=== PATIENT | female | born 1955 | race Hispanic/Latino ===

== ENCOUNTER 2017-02-15 13:51 | Emergency (ER) | payer MEDICARE, MEDICAID ==
[2017-02-15] MEDS ORDERED: Iohexol 240 (50 ml) PO ONE (14:16)
--- NOTE | 2017-02-15 14:21 | ED PDOC ---
HPI: Abdomen Time Seen by Provider: 02/15/17 13:55 Chief Complaint (Nursing): Abdominal Pain Chief Complaint (Provider): Abdominal pain History Per: Patient Additional Complaint(s): Pt c/o nausea, diarrhea and right sided abdominal pain, worse after eating x3 weeks. Pt also states "my stomach starts blowing up after i eat, like I'm ." No fever ror chills. no vomiting or diarrhea. Past Medical History Reviewed: Nursing Documentation, Vital Signs Vital Signs: Last Vital Signs Temp 97.3 F L 02/15/17 13:54 Pulse 67 02/15/17 13:54 Resp 18 02/15/17 13:54 BP Pulse Ox 98 02/15/17 14:21 - Medical History PMH: No Chronic Diseases - Surgical History Surgical History: Cholecystectomy - Family History Family History: States: Unknown Family Hx - Living Arrangements Living Arrangements: With Family - Social History Current smoker - smoking cessation education provided: No Alcohol: None Drugs: Denies - Home Medications Home Medications: Ambulatory Orders Medication Instructions Recorded Ciprofloxacin [Cipro] 500 mg PO BID #6 tab 02/15/17 Dicyclomine [Bentyl] 10 mg PO QID PRN #10 cap 02/15/17 - Allergies Allergies/Adverse Reactions: Allergies Allergy/AdvReac Type Severity Reaction Status Date / Time No Known Allergies Allergy Verified 02/15/17 13:54 Review of Systems ROS Statement: Except As Marked, All Systems Reviewed And Found Negative Gastrointestinal: Positive for: Abdominal Pain Physical Exam - Reviewed Nursing Documentation Reviewed: Yes Vital Signs Reviewed: Yes - Physical Exam Appears: Positive for: Well, Non-toxic, No Acute Distress Head Exam: Positive for: ATRAUMATIC, NORMAL INSPECTION, NORMOCEPHALIC Skin: Positive for: Normal Color, Warm, DRY Eye Exam: Positive for: EOMI, Normal appearance, PERRL ENT: Positive for: Normal ENT Inspection Neck: Positive for: Normal, Painless ROM Cardiovascular/Chest: Positive for: Regular Rate, Rhythm Respiratory: Positive for: CNT, Normal Breath Sounds Gastrointestinal/Abdominal: Positive for: Bowel Sounds, Soft, Tenderness (R flank pain) Back: Positive for: Normal Inspection. Negative for: L CVA Tenderness, R CVA Tenderness Extremity: Positive for: Normal ROM Neurologic/Psych: Positive for: Alert, Oriented - Laboratory Results Result Diagrams: 02/15/17 14:20 02/15/17 14:20 - ECG O2 Sat by Pulse Oximetry: 98 Medical Decision Making Medical Decision Making: IV access established and treatment initiated with IVF and Bentyl CBC resulted WNL COMP - BUN 20 UA with 26 WBCS and RBS (+) IV Cipro started for UTI CT;IMPRESSION: 1. Fatty liver and mild splenomegaly. 2. Status post cholecystectomy, mild diffuse dilatation of the common bile duct and prominence of central biliary radicles is in keeping with postcholecystectomy status. 3. Apparent mild mural thickening of the urinary bladder wall is likely related to underdistention none the excluded. Please correlate with urine analysis. 4. 6 mm nodule in the left lung base. A dedicated CT scan of the thorax without intravenous contrast on a nonemergent basis is recommended for complete evaluation of the lungs. Pt educated on results and demonstrated full understanding. Pt without any complaints of pain on re-eval. Abdomen soft, non tender and non distended Disposition - Clinical Impression Clinical Impression: UTI (urinary tract infection), Abdominal cramps - Patient ED Disposition Is Patient to be Admitted: No - Disposition Disposition: Routine/Home Disposition Time: 17:49 Condition: GOOD Prescriptions: Dicyclomine [Bentyl] 10 mg PO QID PRN #10 cap PRN Reason: Pain, Mild (1-3) Ciprofloxacin [Cipro] 500 mg PO BID #6 tab Instructions: Urinary Tract Infection in Women (ED), Gas and Bloating (ED), Abdominal Pain (ED)
[2017-02-15] MEDS ORDERED: Iohexol 240 (50 ml) ONE (14:22)
[2017-02-15 14:41] LABS: BASO % 0.4 % (0.0-2.0); EOS # 0.1 K/uL (0.0-0.7); HEMATOCRIT 38.4 % (34.0-47.0); LYMPH # 1.3 K/uL (1.0-4.3); LYMPH % 24.7 % (20.0-40.0); MEAN CELL VOLUME 91.8 fl (81.0-99.0); MEAN CORPUSCULAR HEMOGLOBIN 31.2 pg (27.0-31.0); MEAN PLATELET VOLUME 7.5 fl (7.2-11.7); MONO # 0.5 K/uL (0.0-0.8); MONO % 8.9 % (0.0-10.0); NEUT # 3.4 K/uL (1.8-7.0); NRBC % 0.1 % (0.0-0.0); RED CELL DISTRIBUTION WIDTH 13.5 % (11.5-14.5); WHITE BLOOD COUNT 5.3 K/uL (4.8-10.8)
[2017-02-15 14:47] LABS: ALB/GLOB RATIO 1.1 (1.0-2.1); ALKALINE PHOSPHATASE 63 U/L (38-126); ALT/SGPT 28 U/L (9-52); AMYLASE 95 U/L (30-110); AST/SGOT 42 U/L (14-36); BILIRUBIN,TOTAL 0.9 mg/dl (0.2-1.3); BLOOD UREA NITROGEN 20 mg/dl (7-17); CALCIUM 9.1 mg/dL (8.4-10.2); CARBON DIOXIDE 28 mmol/L (22-30); CHLORIDE 102 mmol/L (98-107); GFR AFRICAN-AMERICAN > 60; GLUCOSE,RANDOM 118 mg/dL (65-105); LIPASE 199 U/L (23-300); SODIUM 144 mmol/l (132-148); TOTAL PROTEIN 8.4 G/DL (6.3-8.2)
[2017-02-15 14:58] LABS: RBC URINE 4 /hpf (0-3); URINE BACTERIA RARE (<OCC); URINE BILIRUBIN NEGATIVE (NEGATIVE); URINE BLOOD NEGATIVE (NEGATIVE); URINE COLOR YELLOW (YELLOW); URINE GLUCOSE (UA) NEG (Normal); URINE KETONE NEGATIVE (NEGATIVE); URINE LEUKOCYTE ESTERASE MOD Leu/uL (Negative); URINE PROTEIN NEGATIVE (NEGATIVE); URINE UROBILINOGEN 0.2-1.0 mg/dL (0.2-1.0); WBC URINE 31 /hpf (0-5)
--- NOTE | 2017-02-15 15:12 | RAD ---
PROCEDURE: CHEST RADIOGRAPH, 1 VIEW HISTORY: med screening COMPARISON: None available. FINDINGS: LUNGS: The lungs are well inflated and clear. PLEURA: No pneumothorax or pleural fluid seen. CARDIOVASCULAR: Normal. OSSEOUS STRUCTURES: No significant abnormalities. VISUALIZED UPPER ABDOMEN: Normal. OTHER FINDINGS: None. IMPRESSION: No active pulmonary disease.
[2017-02-15] MEDS ORDERED: Sodium Chloride 0.9% 1,000 ML IV STA (15:17)
[2017-02-15] MEDS ORDERED: Ciprofloxacin 400mg/200ml D5W 200 ML IVPB STA (15:17)
[2017-02-15 15:29] LABS: RBC URINE 5 /hpf (0-3); URINE BACTERIA RARE (<OCC); URINE BILIRUBIN NEGATIVE (NEGATIVE); URINE BLOOD NEGATIVE (NEGATIVE); URINE COLOR YELLOW (YELLOW); URINE GLUCOSE (UA) NEG (Normal); URINE KETONE NEGATIVE (NEGATIVE); URINE LEUKOCYTE ESTERASE SMALL Leu/uL (Negative); URINE PROTEIN NEGATIVE (NEGATIVE); URINE UROBILINOGEN 0.2-1.0 mg/dL (0.2-1.0); WBC URINE 26 /hpf (0-5)
[2017-02-15] MEDS ORDERED: Iohexol 300 100 ML IJ ONE (16:27)
[2017-02-15] MEDS ORDERED: Sodium Chloride 0.9% 50 ML IV ONE (16:27)
--- NOTE | 2017-02-15 17:19 | CT ---
PROCEDURE: CT Abdomen and Pelvis with contrast HISTORY: 3 weeks of diarrhea, RUQ pain COMPARISON: None. TECHNIQUE: CT scan of the abdomen and pelvis was performed after intravenous administration of contrast. Oral contrast was not administered. Coronal and sagittal reformatted images were obtained. Contrast dose: 95 mL Omnipaque 300 Radiation dose: Total exam DLP = 1057.42 mGy-cm. This CT exam was performed using one or more of the following dose reduction techniques: Automated exposure control, adjustment of the mA and/or kV according to patient size, and/or use of iterative reconstruction technique. FINDINGS: LOWER THORAX: There is a 6 mm noncalcified nodule in the left lung base. There is bibasilar atelectasis. LIVER: The liver is normal in size and there is homogeneous enhancement. There is fatty infiltration in the liver. There is no focal lesion or intrahepatic biliary ductal dilatation. GALLBLADDER AND BILE DUCTS: Surgically absent. There is mild diffuse dilatation of the common bile duct which measures 11 mm, there is smooth tapering without evidence of choledocholithiasis most likely related to postcholecystectomy status. PANCREAS: There is mild fatty atrophy of the pancreas. There is homogeneous enhancement without focal masses. No calcifications or ductal dilatation. SPLEEN: There is borderline splenomegaly. There is homogeneous enhancement without focal lesion. ADRENALS: Both adrenal glands are normal in size without discrete nodule. KIDNEYS AND URETERS: Both kidneys are normal in size and there is homogeneous enhancement without hydronephrosis or focal mass. The ureters are not dilated. VASCULATURE: There are early atherosclerotic aortoiliac calcifications. No aortic aneurysm. BOWEL: The small bowel loops are normal in caliber. There is mild sigmoid diverticulosis without CT evidence for acute diverticulitis. APPENDIX: Normal appendix. PERITONEUM: No free fluid. No free air. LYMPH NODES: No enlarged lymph nodes. BLADDER: There is apparent mild mural thickening in the urinary bladder. REPRODUCTIVE: There is age-appropriate atrophy of the uterus. BONES: No acute fracture. Mild multilevel degenerative disc disease in the lower lumbar spine, worse at L5-S1. OTHER FINDINGS: None. IMPRESSION: 1. Fatty liver and mild splenomegaly. 2. Status post cholecystectomy, mild diffuse dilatation of the common bile duct and prominence of central biliary radicles is in keeping with postcholecystectomy status. 3. Apparent mild mural thickening of the urinary bladder wall is likely related to underdistention none the excluded. Please correlate with urine analysis. 4. 6 mm nodule in the left lung base. A dedicated CT scan of the thorax without intravenous contrast on a nonemergent basis is recommended for complete evaluation of the lungs.
[2017-02-15] MEDS ORDERED: Ciprofloxacin 400mg/200ml D5W 200 ML IVPB ONE (17:47)
[2017-02-15 19:17] VITALS: BP 132/74; PULSE 79; RESP 19; TEMP 98.6; O2SAT 97
--- NOTE | 2017-02-16 19:21 | CARD ---
APPROVED REPORT EKG Measurement Heart [id number] <Conclusion> Sinus bradycardia Inferior infarct, age undetermined Abnormal ECG
== END 2017-02-15 19:19 | disposition home or self-care (01) ==
LOC: H.ER 13:51
DX: N39.0 Urinary tract infection, site not specified (principal); R10.11 Right upper quadrant pain; R19.7 Diarrhea, unspecified; R11.0 Nausea; R16.1 Splenomegaly, not elsewhere classified; R91.1 Solitary pulmonary nodule; Z90.49 Acquired absence of other specified parts of digestive tract
CPT/HCPCS: 71010; 74177; 80053; 81003; 82150; 83690; 84484; 85025; 93005; 96374; 99284; J0744; J7040; Q9966; Q9967

== ENCOUNTER 2017-02-21 17:23 | Emergency (ER) | payer MEDICARE, MEDICAID ==
[2017-02-21 17:33] VITALS: BP 151/84; PULSE 61; RESP 16; TEMP 98; O2SAT 100
[2017-02-21] MEDS ORDERED: Sodium Chloride 0.9% 500 ML IV STA (18:20)
[2017-02-21] MEDS ORDERED: Atropine-Diphenoxylate 0.025-2.5 mg Tab PO STA (18:20)
--- NOTE | 2017-02-21 18:33 | ED PDOC ---
HPI: Abdomen Time Seen by Provider: 02/21/17 18:00 Chief Complaint (Nursing): GI Problem Chief Complaint (Provider): GI Problem History Per: Patient History/Exam Limitations: no limitations Onset/Duration Of Symptoms: Days (x2 days) Current Symptoms Are (Timing): Still Present Additional Complaint(s): 61 y/o female with a past medical history of hypertension and hypothyroidism who presents to the emergency department with a complaint of abdominal pain, 2 episodes of vomiting (non-bloody), and a total of 20 episodes of diarrhea between yesterday and today (mild bloody) x2 days. Denies fever, chills, and urinary discomfort. Last meal was at 12:30 pm. Able to tolerate liquids; but not food. Of note, patient visited the ER on 02/15/2017, was diagnosed with a Urinary Tract Infection and was prescribed antibiotics. Patient was also hospitalized in Dec 02 till Dec 3 was found with an enlarged liver. 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 Went through chemo therapy for 6 weeks and was cancer free in 2010. Recent completed endoscopy and colonoscopy a year ago with no abnormal findings. PMD: Dr. Isidro Delcid MD (Next appointment scheduled for March 22, 2017) Truck Jumper: Dr. Wai Corona MD (Next Appointment Scheduled for 02/22/2017 at 12:30; last visited him 3 weeks ago) Past Medical History Reviewed: Historical Data, Nursing Documentation, Vital Signs Vital Signs: Last Vital Signs Temp 98.0 F 02/21/17 17:31 Pulse 61 02/21/17 17:31 Resp 16 02/21/17 17:31 BP 151/84 H 02/21/17 17:31 Pulse Ox 100 02/21/17 21:13 - Medical History PMH: Hiatal Hernia, HTN, Hyperthyroidism, Kidney Stones - Surgical History Surgical History: Cholecystectomy, Hernia Repair Other surgeries: Tubual Ligation and kidney stones removal - Family History Family History: States: Diabetes (Brothers), Other (Mother had lung cancer) - Social History Current smoker - smoking cessation education provided: No Alcohol: None Drugs: Denies - Home Medications Home Medications: Ambulatory Orders Medication Instructions Recorded Ciprofloxacin [Cipro] 500 mg PO BID #6 tab 02/15/17 Dicyclomine [Bentyl] 10 mg PO QID PRN #10 cap 02/15/17 Dicyclomine [Bentyl] 20 mg PO BID PRN #30 tab 02/21/17 Ondansetron ODT [Zofran ODT] 1 odt PO Q6 PRN #30 odt 02/21/17 Saccharomyces Boulardi [Florastor] 500 mg PO BID #28 cap 02/21/17 - Allergies Allergies/Adverse Reactions: Allergies Allergy/AdvReac Type Severity Reaction Status Date / Time Dairy Allergy RASH Uncoded 02/21/17 17:31 Review of Systems ROS Statement: Except As Marked, All Systems Reviewed And Found Negative Constitutional: Negative for: Fever, Chills Gastrointestinal: Positive for: Vomiting (2 episodes), Abdominal Pain, Diarrhea (12 yesterday and 8 today), Hematochezia (Mild). Negative for: Hematemesis Genitourinary Female: Negative for: Dysuria, Frequency, Incontinence, Hematuria Physical Exam - Reviewed Nursing Documentation Reviewed: Yes Vital Signs Reviewed: Yes - Physical Exam Appears: Positive for: Non-toxic, No Acute Distress Head Exam: Positive for: ATRAUMATIC, NORMOCEPHALIC Skin: Positive for: Normal Color, Warm, Dry Eye Exam: Positive for: Normal appearance. Negative for: Conjunctival injection ENT: Positive for: Normal ENT Inspection, Other (Tachy mucus membranes). Negative for: Pharyngeal Erythema, Tonsillar Swelling Neck: Positive for: Normal, Supple Cardiovascular/Chest: Positive for: Regular Rate, Rhythm. Negative for: Murmur Respiratory: Positive for: Normal Breath Sounds. Negative for: Accessory Muscle Use, Respiratory Distress Gastrointestinal/Abdominal: Positive for: Soft, Tenderness (RUQ tenderness to palpation). Negative for: Normal Exam, Mass, Distended, Guarding, Rebound Neurologic/Psych: Positive for: Alert, Oriented - Laboratory Results Result Diagrams: 02/21/17 19:05 02/21/17 19:05 - ECG O2 Sat by Pulse Oximetry: 100 (RA) Pulse Ox Interpretation: Normal Medical Decision Making Medical Decision Making: Time: 18:00 Initial impression: Vomiting and diarrhea. Differential includes gastroenteritis , antibiotic associated diarrhea, dehydration and electrolyte abnormality. Initial plan: --COMP Metabolic Panel --Lact acid, Plasma Stat --Lipase Stat --Magnesium Stat --Phosphorous Stat --Ed Urine Dipstick (POC) --CBC w/ differential --Lomotil 0.025-2.5 mg 2 tab PO --Sodium Chloride 500 ml IV 500 mls/hr --Zofran 8 mgIV --Ova and Parasite --Stool Culture stat --Urine Culture Stat --IV Insertion --C Diff Toxin A B Stat --Urinalysis Stat --Revaluation Labs unremarkable Pt tolerating PO in ER. No further episodes of diarrhea in the ER. Pt has GI appointment tomorrow. Advised to keep appointment and continue medications as prescribed. Scribe Attestation: Documented by Sharona Guerrero, acting as a scribe for Marion Mcclain MD. Provider Scribe Attestation: All medical record entries made by the Scribe were at my direction and personally dictated by me. I have reviewed the chart and agree that the record accurately reflects my personal performance of the history, physical exam, medical decision making, and the department course for this patient. I have also personally directed, reviewed, and agree with the discharge instructions and disposition. Disposition - Clinical Impression Clinical Impression: Vomiting and diarrhea, Abdominal pain Counseled Patient/Family Regarding: Studies Performed, Diagnosis - Disposition Disposition: Routine/Home Disposition Time: 20:30 Condition: IMPROVED Additional Instructions: BLAND DIET WITH PLENTY OF HYDRATING FLUIDS KEEP YOUR APPOINTMENT WITH THE INSPECTOR MATERIALS AND PROCESSES TOMORROW. Prescriptions: Dicyclomine [Bentyl] 20 mg PO BID PRN #30 tab PRN Reason: abdominal pain Saccharomyces Boulardi [Florastor] 500 mg PO BID #28 cap Ondansetron ODT [Zofran ODT] 1 odt PO Q6 PRN #30 odt PRN Reason: Nausea/Vomiting Instructions: Abdominal Pain (ED), Gastroenteritis (ED)
[2017-02-21 19:10] LABS: BASO % 0.4 % (0.0-2.0); EOS # 0.1 K/uL (0.0-0.7); EOS % 2.2 % (0.0-4.0); HEMATOCRIT 35.8 % (34.0-47.0); LYMPH # 1.4 K/uL (1.0-4.3); LYMPH % 22.4 % (20.0-40.0); MEAN CELL VOLUME 91.7 fl (81.0-99.0); MEAN CORPUSCULAR HEMOGLOBIN 30.9 pg (27.0-31.0); MEAN CORPUSCULAR HGB CONC 33.7 g/dL (33.0-37.0); MEAN PLATELET VOLUME 7.3 fl (7.2-11.7); MONO # 0.4 K/uL (0.0-0.8); MONO % 7.2 % (0.0-10.0); NEUT # 4.1 K/uL (1.8-7.0); NEUT % 67.8 % (50.0-75.0); NRBC % 0.1 % (0.0-0.0); RED CELL DISTRIBUTION WIDTH 13.5 % (11.5-14.5); WHITE BLOOD COUNT 6.1 K/uL (4.8-10.8)
[2017-02-21 19:13] LABS: RBC URINE 1 /hpf (0-3); URINE BACTERIA RARE (<OCC); URINE BILIRUBIN NEGATIVE (NEGATIVE); URINE BLOOD NEGATIVE (NEGATIVE); URINE COLOR STRAW (YELLOW); URINE GLUCOSE (UA) NEG (Normal); URINE KETONE NEGATIVE (NEGATIVE); URINE LEUKOCYTE ESTERASE NEG Leu/uL (Negative); URINE PROTEIN NEGATIVE (NEGATIVE); URINE UROBILINOGEN 0.2-1.0 mg/dL (0.2-1.0); WBC URINE < 1 /hpf (0-5)
[2017-02-21 19:27] LABS: ALB/GLOB RATIO 1.1 (1.0-2.1); ALKALINE PHOSPHATASE 69 U/L (38-126); ALT/SGPT 31 U/L (9-52); AST/SGOT 32 U/L (14-36); BILIRUBIN,TOTAL 0.4 mg/dl (0.2-1.3); BLOOD UREA NITROGEN 20 mg/dl (7-17); CALCIUM 9.3 mg/dL (8.4-10.2); CARBON DIOXIDE 28 mmol/L (22-30); CHLORIDE 103 mmol/L (98-107); GFR AFRICAN-AMERICAN > 60; GLUCOSE,RANDOM 86 mg/dL (65-105); LIPASE 263 U/L (23-300); MAGNESIUM 2.1 MG/DL (1.6-2.3); PHOSPHOROUS 4.6 mg/dl (2.5-4.5); POTASSIUM 3.9 MMOL/L (3.6-5.0); SODIUM 143 mmol/l (132-148); TOTAL PROTEIN 7.8 G/DL (6.3-8.2)
== END 2017-02-21 20:51 | disposition home or self-care (01) ==
LOC: H.ER 17:23
DX: K52.9 Noninfective gastroenteritis and colitis, unspecified (principal); R11.10 Vomiting, unspecified; R10.9 Unspecified abdominal pain; I10 Essential (primary) hypertension; R19.7 Diarrhea, unspecified
CPT/HCPCS: 80053; 81003; 83605; 83690; 83735; 84100; 85025; 87086; 96374; 99283; J2405; J7040

== ENCOUNTER 2017-04-25 16:42 | Observation (INO) | payer MEDICARE, MEDICAID ==
[2017-04-25] MEDS ORDERED: Iohexol 240 (50 ml) PO STA (17:08)
[2017-04-25] MEDS ORDERED: Sodium Chloride 0.9% 1,000 ML IV STA (17:09)
--- NOTE | 2017-04-25 17:40 | ED PDOC ---
HPI: Abdomen Time Seen by Provider: 04/25/17 17:01 Chief Complaint (Nursing): GI Problem Chief Complaint (Provider): GI problem History Per: Patient History/Exam Limitations: no limitations Onset/Duration Of Symptoms: Days (5x) Severity: Moderate Location Of Pain/Discomfort: Other (right sided) Associated Symptoms: Diarrhea (bloody). denies: Fever, Nausea, Vomiting Additional Complaint(s): 61 year old female with a pertinent medical history of anal cancer (in remission ) presents to the ED with complaints of bloody diarrhea accompanied by right sided abdominal pain that started 5x days ago. She denies having nausea, vomiting, and fevers. PMD: Isidro Delcid MD Past Medical History Reviewed: Historical Data, Nursing Documentation, Vital Signs Vital Signs: Last Vital Signs Temp 98.3 F 04/25/17 21:22 Pulse 56 L 04/25/17 21:22 Resp 18 04/25/17 21:22 BP 138/70 04/25/17 21:22 Pulse Ox 99 04/25/17 21:52 - Medical History PMH: Hiatal Hernia, HTN, Hyperthyroidism, Kidney Stones Other PMH: anal cancer - Surgical History Surgical History: Cholecystectomy, Hernia Repair - Family History Family History: States: Unknown Family Hx, Diabetes (Brothers) - Social History Current smoker - smoking cessation education provided: No Alcohol: None Drugs: Denies - Home Medications Home Medications: Ambulatory Orders Medication Instructions Recorded Aspirin [Aspirin Chewable] 1 tab PO DAILY 04/25/17 Famotidine [Pepcid] 1 tab PO DAILY 04/25/17 Levothyroxine [Synthroid] 1 tab PO DAILY 04/25/17 Simvastatin [Simvastatin] 1 tab PO HS 04/25/17 amLODIPine [Norvasc] 1 tab PO DAILY 04/25/17 hydroCHLOROthiazide [Hydrodiuril] 1 tab PO DAILY 04/25/17 - Allergies Allergies/Adverse Reactions: Allergies Allergy/AdvReac Type Severity Reaction Status Date / Time Dairy Allergy RASH Uncoded 04/25/17 16:50 Review of Systems ROS Statement: Except As Marked, All Systems Reviewed And Found Negative Constitutional: Negative for: Fever Gastrointestinal: Positive for: Abdominal Pain (right sided), Diarrhea (boody). Negative for: Nausea, Vomiting Physical Exam - Reviewed Nursing Documentation Reviewed: Yes Vital Signs Reviewed: Yes - Physical Exam Appears: Positive for: Well, Non-toxic, No Acute Distress Head Exam: Positive for: ATRAUMATIC, NORMOCEPHALIC Skin: Positive for: Normal Color, Warm, Dry Cardiovascular/Chest: Positive for: Regular Rate, Rhythm Respiratory: Positive for: Normal Breath Sounds. Negative for: Respiratory Distress Gastrointestinal/Abdominal: Positive for: Tenderness (right upper quadrant tenderness ). Negative for: Mass, Guarding, Rebound Rectal: Positive for: Other (chaperoned by Lorene LOPEZ. No gross blood) Neurologic/Psych: Positive for: Alert, Oriented (3x) - Laboratory Results Result Diagrams: 04/25/17 17:36 04/25/17 17:36 - ECG O2 Sat by Pulse Oximetry: 99 (RA) Pulse Ox Interpretation: Normal Medical Decision Making Medical Decision Makin:01 Initial impression: 61 year old female with bloody diarrhea and right sided abdominal pain. Initial plan: * CT abdomen and pelvis with PO and IV contrast * EKG * CMP * lipase * udip * CBC * PT/PTT * IV NS 1,000ml IV 125mls/hr * omnipaque 240 50ml PO * occult blood, stool * urinalysis * reevaluation 17:08 Patient is being placed in ED observation pending CT scan, labs, and additional diagnostics to rule out acute or life threatening disease. See ED observation note for further updates. Copy of CT report given to patient. Scribe Attestation: Documented by Zahida Jeter, acting as a scribe for Mickie Torres MD. Provider Scribe Attestation: All medical record entries made by the Scribe were at my direction and personally dictated by me. I have reviewed the chart and agree that the record accurately reflects my personal performance of the history, physical exam, medical decision making, and the department course for this patient. I have also personally directed, reviewed, and agree with the discharge instructions and disposition. ED OBSERVATION Date of observation admission: 04/25/17 Time of observation admission: 17:08 - Observation admission statement Patient is being placed in observation because:: Need for additional diagnostics to rule out acute life threatening condition. - Goals of Observation Goals of observation are:: Resolution of symptoms. - Progress Note Progress Note: 04/25/17 20:59 CT abdomen and pelvis with PO and IV contrast is read and reviewed by radiologist. FINDINGS: 5 mm nodule at the left lung base, image 7. 2.5 pleural-based nodular focus in the right lung base/right middle lobe, image 4. The liver, spleen and adrenal glands demonstrate no acute abnormalities. Status post cholecystectomy. Dilated common bile duct likely related to post cholecystectomy status. Mild atrophy of the pancreas. The kidneys are symmetric with no evidence of hydronephrosis. Atherosclerosis. The stomach is collapsed, but gastric wall appears prominent. Further evaluation can be performed with upper endoscopy as warranted. The small and large bowel as visualized demonstrate no evidence of obstruction or clear focus of inflammation. Retained fecal material in the colon. Diverticulosis. No ascites. No free air. Bladder is collapsed, but bladder wall appears thickened. Degenerative changes, most notable at L5-S1. IMPRESSION: 5 mm nodule at the left lung base, image 7. 2.5 pleural-based nodular focus in the right lung base/right middle lobe, image 4. Correlate with report and recommendations from recent dedicated chest CT. Stomach is collapsed, but gastric wall appears prominent. Further evaluation can be performed with upper endoscopy as warranted. Bladder is collapsed, but bladder wall appears thickened. Please see additional details/findings as above. Some of the above findings may warrant followup evaluation. Correlate clinically. Followup as warranted. 04/25/17 22:10 Patient is being discharged. Disposition - Clinical Impression Clinical Impression: Diverticulosis - Disposition Condition: STABLE
[2017-04-25 17:41] LABS: BASO % 0.5 % (0.0-2.0); EOS # 0.1 K/uL (0.0-0.7); EOS % 2.5 % (0.0-4.0); HEMATOCRIT 36.7 % (34.0-47.0); LYMPH # 1.2 K/uL (1.0-4.3); MEAN CELL VOLUME 93.1 fl (81.0-99.0); MEAN CORPUSCULAR HEMOGLOBIN 31.4 pg (27.0-31.0); MEAN CORPUSCULAR HGB CONC 33.7 g/dL (33.0-37.0); MEAN PLATELET VOLUME 7.2 fl (7.2-11.7); MONO # 0.6 K/uL (0.0-0.8); MONO % 9.8 % (0.0-10.0); NEUT # 3.9 K/uL (1.8-7.0); NEUT % 67.2 % (50.0-75.0); NRBC % 0.1 % (0.0-0.0); RED CELL DISTRIBUTION WIDTH 13.5 % (11.5-14.5); WHITE BLOOD COUNT 5.9 K/uL (4.8-10.8)
[2017-04-25 18:11] LABS: ALB/GLOB RATIO 1.3 (1.0-2.1); ALKALINE PHOSPHATASE 61 U/L (38-126); ALT/SGPT 43 U/L (9-52); AST/SGOT 27 U/L (14-36); BILIRUBIN,TOTAL 0.3 mg/dl (0.2-1.3); BLOOD UREA NITROGEN 16 mg/dl (7-17); CALCIUM 9.1 mg/dL (8.4-10.2); CARBON DIOXIDE 28 mmol/L (22-30); CHLORIDE 101 mmol/L (98-107); GFR AFRICAN-AMERICAN > 60; GLUCOSE,RANDOM 122 mg/dL (65-105); LIPASE 246 U/L (23-300); POTASSIUM 3.6 MMOL/L (3.6-5.0); SODIUM 142 mmol/l (132-148)
[2017-04-25 18:14] LABS: RBC URINE 4 /hpf (0-3); URINE BILIRUBIN NEGATIVE (NEGATIVE); URINE BLOOD NEGATIVE (NEGATIVE); URINE COLOR YELLOW (YELLOW); URINE GLUCOSE (UA) NEG (Normal); URINE KETONE NEGATIVE (NEGATIVE); URINE LEUKOCYTE ESTERASE SMALL Leu/uL (Negative); URINE PROTEIN NEGATIVE (NEGATIVE); URINE UROBILINOGEN 0.2-1.0 mg/dL (0.2-1.0); WBC URINE 4 /hpf (0-5)
[2017-04-25 18:20] LABS: PARTIAL THROMBOPLASTIN TIME 28.5 Seconds (25.6-37.1)
--- NOTE | 2017-04-25 21:00 | CT ---
EXAM: CT Abdomen and Pelvis With Intravenous Contrast CLINICAL HISTORY: 61 years old, female; Pain; Abdominal pain; Epigastric; Additional info: Ruq pain, bloody diarrhea, h/o cholecystectomy TECHNIQUE: Axial computed tomography images of the abdomen and pelvis with intravenous contrast. This CT exam was performed using one or more of the following dose reduction techniques: automated exposure control, adjustment of the mA and/or kV according to patient size, and/or use of iterative reconstruction technique. Coronal and sagittal reformatted images were created and reviewed. CONTRAST: 95 mL of omnipaque administered intravenously. COMPARISON: CT - ABD PELVIS PO IV CONTRAST 02/15/2017 4:28:17 PM FINDINGS: 5 mm nodule at the left lung base, image 7. 2.5 pleural-based nodular focus in the right lung base/right middle lobe, image 4. The liver, spleen and adrenal glands demonstrate no acute abnormalities. Status post cholecystectomy. Dilated common bile duct likely related to post cholecystectomy status. Mild atrophy of the pancreas. The kidneys are symmetric with no evidence of hydronephrosis. Atherosclerosis. The stomach is collapsed, but gastric wall appears prominent. Further evaluation can be performed with upper endoscopy as warranted. The small and large bowel as visualized demonstrate no evidence of obstruction or clear focus of inflammation. Retained fecal material in the colon. Diverticulosis. No ascites. No free air. Bladder is collapsed, but bladder wall appears thickened. Degenerative changes, most notable at L5-S1. IMPRESSION: 5 mm nodule at the left lung base, image 7. 2.5 pleural-based nodular focus in the right lung base/right middle lobe, image 4. Correlate with report and recommendations from recent dedicated chest CT. Stomach is collapsed, but gastric wall appears prominent. Further evaluation can be performed with upper endoscopy as warranted. Bladder is collapsed, but bladder wall appears thickened. Please see additional details/findings as above. Some of the above findings may warrant followup evaluation. Correlate clinically. Followup as warranted.
[2017-04-25 21:24] VITALS: BP 138/70; PULSE 56; RESP 18; TEMP 98.3
[2017-04-25 21:53] VITALS: O2SAT 99
--- NOTE | 2017-04-26 18:14 | CARD ---
APPROVED REPORT EKG Measurement Heart [id number] <Conclusion> Sinus bradycardia Inferior infarct, age undetermined Abnormal ECG
== END 2017-04-25 21:52 | disposition home or self-care (01) ==
LOC: H.ER 16:42 → H.EROBSV 17:08
PROVIDERS: ADMIT Emergency Medicine; ATTEND Emergency Medicine
DX: K57.90 Diverticulosis of intestine, part unspecified, without perforation or abscess without bleeding (principal); I10 Essential (primary) hypertension; Z85.048 Personal history of other malignant neoplasm of rectum, rectosigmoid junction, and anus; Z91.011 Allergy to milk products

== ENCOUNTER 2017-11-28 18:38 | Observation (INO) | payer MEDICARE, MEDICAID ==
--- NOTE | 2017-11-28 19:49 | ED PDOC ---
HPI: Chest Pain Time Seen by Provider: 11/28/17 18:55 Chief Complaint (Nursing): Chest Pain Chief Complaint (Provider): Chest Pain History Per: Patient History/Exam Limitations: no limitations Onset/Duration Of Symptoms: Days (x3) Current Symptoms Are (Timing): Still Present Additional Complaint(s): 62 year old female with a past medical history of NM (2011), HTN, hypercholesterolemia, hypothyroidism, and arthritis, who presents to the ED complaining of chest pain x3 days. Patient states chest pain is present at rest and has been increasing since onset. Also states it worsens with any exertion. Also reports mild shortness of breath and pain to her left posterior buttock and thigh area. States she went to [facility] at that time for evaluation where she was diagnosed with gastritis and prescribed Maalox and Pepcid. Reports that since then her chest pain is now radiating to her neck, to her shoulder, and down her right arm. States there is no improvement. Denies leg swelling, cough, and fever. PMD: Dr. Delcid, [facility] Past Medical History Reviewed: Historical Data, Nursing Documentation, Vital Signs Vital Signs: Last Vital Signs Temp 98.4 F 11/28/17 18:48 Pulse 64 11/28/17 18:48 Resp 18 11/28/17 18:48 BP 158/74 H 11/28/17 18:48 Pulse Ox 98 11/28/17 18:48 - Medical History PMH: Arthritis, Hiatal Hernia, HTN, Hypercholesterolemia, Hypothyroidism, Kidney Stones - Surgical History Surgical History: Cholecystectomy, Hernia Repair - Family History Family History: States: Unknown Family Hx, Diabetes (Brothers) Other Family History: Lung cancer (mother) - Social History Current smoker - smoking cessation education provided: No Alcohol: None - Home Medications Home Medications: Ambulatory Orders Medication Instructions Recorded Aspirin [Aspirin Chewable] 1 tab PO DAILY 04/25/17 Famotidine [Pepcid] 1 tab PO DAILY 04/25/17 Levothyroxine [Synthroid] 1 tab PO DAILY 04/25/17 Simvastatin [Simvastatin] 1 tab PO HS 04/25/17 amLODIPine [Norvasc] 1 tab PO DAILY 04/25/17 hydroCHLOROthiazide [Hydrodiuril] 1 tab PO DAILY 04/25/17 Mometasone 0.1% [Elocon 0.1%] 15 gm TP BID 11/28/17 - Allergies Allergies/Adverse Reactions: Allergies Allergy/AdvReac Type Severity Reaction Status Date / Time Dairy Allergy RASH Uncoded 11/28/17 18:46 Review of Systems ROS Statement: Except As Marked, All Systems Reviewed And Found Negative (as per HPI) - ECG O2 Sat by Pulse Oximetry: 98 (RA) Pulse Ox Interpretation: Normal Medical Decision Making Medical Decision Making: Time: 19:23 Initial Impression: Chest pain and sciatica. Differential diagnoses include, but are not limited to acute coronary syndrome, angina, PE, cervical radiculopathy Initial Plan: --Blood type and screen --EKG --CMP --Magnesium --Phosphorus --Troponin I --Urine dipstick --CBC w/ differential --D Dimer --PTT --PT --Chest X-Ray 2 views --IV Insertion --X-Ray Cervical spine --X-Ray Hip 2 views w/ pelvis --X-Ray LS spine --Reevaluation Scribe Attestation: Documented by Leland Crowell, acting as a scribe for Marion Mcclain MD. Provider Scribe Attestation: All medical record entries made by the Scribe were at my direction and personally dictated by me. I have reviewed the chart and agree that the record accurately reflects my personal performance of the history, physical exam, medical decision making, and the department course for this patient. I have also personally directed, reviewed, and agree with the discharge instructions and disposition. Disposition - Disposition
[2017-11-28 20:18] LABS: BASO % 0.7 % (0.0-2.0); EOS # 0.1 K/uL (0.0-0.7); EOS % 1.7 % (0.0-4.0); HEMOGLOBIN 11.9 g/dL (12.0-16.0); LYMPH # 1.3 K/uL (1.0-4.3); LYMPH % 26.2 % (20.0-40.0); MEAN CELL VOLUME 91.2 fl (81.0-99.0); MEAN CORPUSCULAR HEMOGLOBIN 31.1 pg (27.0-31.0); MEAN CORPUSCULAR HGB CONC 34.1 g/dL (33.0-37.0); MEAN PLATELET VOLUME 7.5 fl (7.2-11.7); MONO # 0.7 K/uL (0.0-0.8); MONO % 13.6 % (0.0-10.0); NEUT # 2.8 K/uL (1.8-7.0); NEUT % 57.8 % (50.0-75.0); NRBC % 0.1 % (0.0-0.0); RBC 3.83 Mil/uL (3.80-5.20); WHITE BLOOD COUNT 4.9 K/uL (4.8-10.8)
[2017-11-28 20:28] LABS: ALB/GLOB RATIO 1.2 (1.0-2.1); ALBUMIN 4.3 g/dL (3.5-5.0); ALT/SGPT 121 U/L (9-52); AST/SGOT 115 U/L (14-36); BLOOD UREA NITROGEN 14 mg/dl (7-17); CALCIUM 9.2 mg/dL (8.4-10.2); GFR AFRICAN-AMERICAN > 60; GFR NON-AFRICAN AMERICAN > 60; MAGNESIUM 2.2 MG/DL (1.6-2.3)
[2017-11-28 20:37] LABS: PARTIAL THROMBOPLASTIN TIME 26.8 Seconds (25.6-37.1); PROTHROMBIN TIME 11.4 Seconds (9.8-13.1)
[2017-11-28] MEDS ORDERED: Sodium Chloride 0.9% 50 ML IV ONE (23:27)
[2017-11-28] MEDS ORDERED: Iodixanol 320 MG/ML 100 ML BOTTLE IV ONE (23:27)
--- NOTE | 2017-11-29 00:18 | ED PDOC ---
- Laboratory Results Result Diagrams: 11/28/17 20:09 11/28/17 20:09 - ECG O2 Sat by Pulse Oximetry: 98 (RA) Pulse Ox Interpretation: Normal Medical Decision Making Medical Decision Making: Time: 00:00 --Patient signed out to me pending CT. Chest CT FINDINGS: Artifacts: Motion artifact degrades image quality. Heart, aorta and Pulmonary arteries: The heart is mildly enlarged.There is fluid in pericardial recesses. There is prominence of the ascending aorta approximately 3.9 cm maximal diameter. There is perfusion of the arch vessels. Main pulmonary artery is normal in caliber. There are no central pulmonary emboli. Bolus timing and motion limit evaluation of peripheral vessels. Lungs and pleural spaces: Trachea and main bronchi are patent.There is no pneumothorax. There is minimal atelectasis/scarring at the lung bases. There is minimal dependent atelectasis bilaterally. There is no focal consolidation. There is a 2.5 mm superior segment left lower lobe pleural-based nodule, unchanged. There is a 2.8 mm left lower lobe pulmonary nodule, unchanged , image 81 series 4. Pleural-based right middle lobe nodule seen on the prior study now measures approximately 2.8 mm, image 70 series 4 There is no focal consolidation. There are no effusions. Mediastinum: The esophagus is unremarkable. There is a small hiatal hernia. There are no pathologically enlarged mediastinal or hilar nodes. Thyroid: Thyroid is not optimally demonstrated. Bones/joints: There are degenerative changes in the osseus structures. Soft tissues: unremarkable Upper abdomen: There are no acute abnormalities in the visualized portion of the abdomen. Gallbladder is absent IMPRESSION: Cardiomegaly with mild aneurysmal dilatation of the ascending aorta , similar finding seen on prior study; limited evaluation of pulmonary arteries due to patient motion and bolus timing no central pulmonary emboli; stable small bilateral pulmonary nodules; no focal pneumonia Patient will be hospitalized as a patient in observation to the service of Dr. Fan. Scribe Attestation: Documented by Ade Tesfaye, acting as a scribe for Dewey Diallo MD. Provider Scribe Attestation: All medical record entries made by the Scribe were at my direction and personally dictated by me. I have reviewed the chart and agree that the record accurately reflects my personal performance of the history, physical exam, medical decision making, and the department course for this patient. I have also personally directed, reviewed, and agree with the discharge instructions and disposition. Disposition - Clinical Impression Clinical Impression: Chest pain - POA Present On Arrival: None - Disposition Disposition: Hospitalized as Observation Patient Disposition Time: 00:11 Condition: STABLE Patient Signed Over To: Grayson Fan
--- NOTE | 2017-11-29 00:58 | CT ---
EXAM: CT Angiography Chest With Intravenous Contrast EXAM DATE/TIME: 11/28/2017 9:14 PM CLINICAL HISTORY: 62 years old, female; Pain; Chest pain; Additional info: Chest pain elevated ddimer TECHNIQUE: Axial computed tomographic angiography images of the chest with intravenous contrast using pulmonary embolism protocol. All CT scans at this facility use one or more dose reduction techniques, viz.: automated exposure control; ma/kV adjustment per patient size (including targeted exams where dose is matched to indication; i.e. head); or iterative reconstruction technique. MIP reconstructed images were created and reviewed. Coronal and sagittal reformatted images were created and reviewed. CONTRAST: 86 mL of [id number] administered intravenously. COMPARISON: CT - CHEST W/WO CONTRAST 2017-03-14 12:01 FINDINGS: Artifacts: Motion artifact degrades image quality. Heart, aorta and Pulmonary arteries: The heart is mildly enlarged.There is fluid in pericardial recesses. There is prominence of the ascending aorta approximately 3.9 cm maximal diameter. There is perfusion of the arch vessels. Main pulmonary artery is normal in caliber. There are no central pulmonary emboli. Bolus timing and motion limit evaluation of peripheral vessels. Lungs and pleural spaces: Trachea and main bronchi are patent.There is no pneumothorax. There is minimal atelectasis/scarring at the lung bases. There is minimal dependent atelectasis bilaterally. There is no focal consolidation. There is a 2.5 mm superior segment left lower lobe pleural-based nodule, unchanged. There is a 2.8 mm left lower lobe pulmonary nodule, unchanged, image 81 series 4. Pleural-based right middle lobe nodule seen on the prior study now measures approximately 2.8 mm, image 70 series 4 There is no focal consolidation. There are no effusions. Mediastinum: The esophagus is unremarkable. There is a small hiatal hernia. There are no pathologically enlarged mediastinal or hilar nodes. Thyroid: Thyroid is not optimally demonstrated. Bones/joints: There are degenerative changes in the osseus structures. Soft tissues: unremarkable Upper abdomen: There are no acute abnormalities in the visualized portion of the abdomen. Gallbladder is absent IMPRESSION: Cardiomegaly with mild aneurysmal dilatation of the ascending aorta, similar finding seen on prior study; limited evaluation of pulmonary arteries due to patient motion and bolus timing no central pulmonary emboli; stable small bilateral pulmonary nodules; no focal pneumonia
[2017-11-29 05:45] VITALS: RESP 18
[2017-11-29] MEDS ORDERED: Levothyroxine 100 MCG TAB PO SCH (06:45)
[2017-11-29 07:18] LABS: BASO % 0.3 % (0.0-2.0); EOS # 0.1 K/uL (0.0-0.7); EOS % 2.6 % (0.0-4.0); HEMOGLOBIN 11.7 g/dL (12.0-16.0); LYMPH # 1.2 K/uL (1.0-4.3); LYMPH % 25.8 % (20.0-40.0); MEAN CELL VOLUME 92.8 fl (81.0-99.0); MEAN CORPUSCULAR HEMOGLOBIN 30.7 pg (27.0-31.0); MEAN CORPUSCULAR HGB CONC 33.1 g/dL (33.0-37.0); MEAN PLATELET VOLUME 7.6 fl (7.2-11.7); MONO # 0.6 K/uL (0.0-0.8); MONO % 13.1 % (0.0-10.0); NEUT # 2.7 K/uL (1.8-7.0); NEUT % 58.2 % (50.0-75.0); NRBC % 0.1 % (0.0-0.0); RBC 3.82 Mil/uL (3.80-5.20); RED CELL DISTRIBUTION WIDTH 12.9 % (11.5-14.5); WHITE BLOOD COUNT 4.7 K/uL (4.8-10.8)
[2017-11-29 07:28] LABS: ALB/GLOB RATIO 1.2 (1.0-2.1); ALBUMIN 3.9 g/dL (3.5-5.0); ALT/SGPT 97 U/L (9-52); AST/SGOT 75 U/L (14-36); BLOOD UREA NITROGEN 12 mg/dl (7-17); GFR AFRICAN-AMERICAN > 60; GFR NON-AFRICAN AMERICAN > 60; HDL CHOLESTEROL 35 MG/DL (30-70)
[2017-11-29] MEDS ORDERED: Pneumococcal 23-Valent Vaccine IM ONE (09:00)
[2017-11-29] MEDS ORDERED: FAMOTIDINE PO SCH (09:00)
[2017-11-29] MEDS ORDERED: Enoxaparin 40 mg Syringe SC SCH (09:00)
[2017-11-29] MEDS ORDERED: MOMETASONE 0.1% TP SCH (09:00)
[2017-11-29 09:10] LABS: LDL CHOLESTEROL 107 mg/dL (0-129)
--- NOTE | 2017-11-29 09:35 | RAD ---
PROCEDURE: Cervical Spine Radiographs. HISTORY: Pain. COMPARISON: None. FINDINGS: BONES: Alignment maintained. No fracture. Dens Intact. DISC SPACES: Multilevel narrowing. SOFT TISSUES: Normal. No prevertebral soft tissue swelling. OTHER FINDINGS: None. IMPRESSION: No acute fracture. Degenerative changes.
--- NOTE | 2017-11-29 09:43 | RAD ---
HISTORY: chest pain COMPARISON: Radiographs dated 02/15/2017. TECHNIQUE: Chest PA and lateral FINDINGS: LUNGS: No active pulmonary disease. PLEURA: No significant pleural effusion identified. No pneumothorax apparent. CARDIOVASCULAR: Cardiomediastinal silhouette within normal limits. OSSEOUS STRUCTURES: Unchanged. VISUALIZED UPPER ABDOMEN: Normal. OTHER FINDINGS: None. IMPRESSION: No active disease.
--- NOTE | 2017-11-29 10:00 | RAD ---
PROCEDURE: Left Hip X-ray Radiographs. HISTORY: pain COMPARISON: Correlation is made to CT scan of the abdomen and pelvis dated 04/25/2017. FINDINGS: BONES: No acute fracture. JOINTS: Narrowing of both hips with subchondral sclerosis and cystic change. SOFT TISSUES: Normal. OTHER FINDINGS: None. IMPRESSION: No demonstrated fracture or dislocation. Bilateral hip degenerative changes.
--- NOTE | 2017-11-29 10:01 | RAD ---
PROCEDURE: Radiographs of the Lumbar Spine. HISTORY: pain COMPARISON: Correlations made to CT scan of the abdomen and pelvis dated 04/25/2017. FINDINGS: BONES: Normal alignment. No listhesis. No fracture. DISC SPACES: Multilevel disc space narrowing. OTHER FINDINGS: None. IMPRESSION: No acute fracture. Multilevel degenerative changes.
--- NOTE | 2017-11-29 12:11 | CP.PCM.CON ---
History of Present Illness - History of Present Illness History of Present Illness: This 62-year-old female came to the hospital complaining of chest discomfort which has gone on for last 3 days. The chest discomfort is on the left side of her chest and has traveled by her account to her left leg and at this point bothers her right arm which is particularly uncomfortable upon making a fist. The patient gives history of having been told at a nearby hospital in 2011 of having suffered a heart attack based on her electrocardiogram. The patient denies any chest pain at that time. She has a history of hypertension and dyslipidemia for which she takes medications she denies any history of smoking or diabetes. She denies any chest pain unconnected to physical activity. She denies any history suggestive of congestive cardiac failure. She gives history of having hypothyroidism for which she takes thyroid replacement. There is no significant family history. Physical examination shows a middle aged overweight female who is alert awake coherent afebrile. She is able to lie flat and breathe comfortably at 14-16 breaths per minute. She has a heart rate of 70 bpm regular and a blood pressure of 140/74 mmHg. Her jugular venous pressure was not elevated and there was no edema or lower extremity. The pedal pulses are well felt. There were no carotid bruits. Thyroid was not enlarged. [place] was not palpable. The first and second heart sounds were normal. There were no murmurs and there was no gallop. There were no rales. Her abdomen was soft and liver and spleen are not palpable. A rash was evident at the base of her neck on the right side. According to her this had appeared in the last 24 hours. Her electrocardiogram shows sinus rhythm with non-pathological Q waves in 2 and aVF with evidence of a tiny R wave in III indicating that there is no inferior wall infarct. Her lab data was noted. Her troponin was normal indicating no evidence of myocyte injury. TSH level was mildly elevated indicating a hyperthyroid state. Impression: Atypical chest pain with no evidence of acute coronary syndrome. Her electrocardiogram is not indicated of an inferior wall myocardial infarction. With presence of tiny R waves in lead 3. The patient is hemodynamically stable and may be allowed to return home to be cared for as an outpatient. Past Patient History - Past Medical History & Family History Past Medical History?: Yes - Past Social History Smoking Status: Never Smoked - CARDIAC Hx Cardiac Disorders: Yes Hx Heart Attack: Yes (2011) Hx Hypercholesterolemia: Yes Hx Hypertension: Yes - PULMONARY Hx Respiratory Disorders: No - NEUROLOGICAL Hx Neurological Disorder: No - HEENT Hx HEENT Problems: No - RENAL Hx Chronic Kidney Disease: Yes Hx Kidney Stones: Yes - ENDOCRINE/METABOLIC Hx Endocrine Disorders: Yes Hx Hypothyroidism: Yes - HEMATOLOGICAL/ONCOLOGICAL Hx Blood Disorders: No - INTEGUMENTARY Hx Dermatological Problems: No - MUSCULOSKELETAL/RHEUMATOLOGICAL Hx Musculoskeletal Disorders: Yes Hx Arthritis: Yes Hx Falls: No - GASTROINTESTINAL Hx Gastrointestinal Disorders: Yes Other/Comment: Hiatal Hernia - GENITOURINARY/GYNECOLOGICAL Hx Genitourinary Disorders: No - PSYCHIATRIC Hx Psychophysiologic Disorder: No Hx Substance Use: No - SURGICAL HISTORY Hx Surgeries: Yes Hx Cholecystectomy: Yes Hx Herniorrhaphy: Yes - ANESTHESIA Hx Anesthesia: Yes Hx Anesthesia Reactions: No Hx Malignant Hyperthermia: No Meds Allergies/Adverse Reactions: Allergies Allergy/AdvReac Type Severity Reaction Status Date / Time Dairy Allergy RASH Uncoded 11/28/17 18:46 - Medications Medications: Current Medications Amlodipine Besylate (Norvasc) 5 mg PO DAILY [facility] Aspirin (Aspirin) 325 mg PO DAILY [facility] Enoxaparin Sodium (Lovenox) 40 mg SC DAILY [facility] PRN Reason: Protocol Famotidine (Pepcid) 20 mg PO DAILY [facility] Home Med (Mometasone 0.1% [Elocon Cream]) 1 applic TP BID [facility] Hydrochlorothiazide (Hydrodiuril) 25 mg PO DAILY [facility] Levothyroxine Sodium (Synthroid) 100 mcg PO DAILY@0630 [facility] Pravastatin Sodium (Pravachol) 20 mg PO HS [facility] Results - Vital Signs Recent Vital Signs: Last Vital Signs Temp 97.4 F L 11/29/17 09:34 Pulse 51 L 11/29/17 09:34 Resp 18 11/29/17 09:34 BP 137/78 11/29/17 09:34 Pulse Ox 97 11/29/17 09:34 - Labs Result Diagrams: 11/29/17 06:20 11/29/17 06:20 Labs: Laboratory Results - last 24 hr 11/28/17 11/28/17 11/28/17 20:09 20:09 20:09 WBC 4.9 RBC 3.83 Hgb 11.9 L Hct 34.9 MCV 91.2 MCH 31.1 H MCHC 34.1 RDW 13.0 Plt Count 168 MPV 7.5 Neut % (Auto) 57.8 Lymph % (Auto) 26.2 [place] % (Auto) 13.6 H Eos % (Auto) 1.7 Baso % (Auto) 0.7 Neut # 2.8 Lymph # 1.3 [place] # 0.7 Eos # 0.1 Baso # 0.0 PT 11.4 INR 1.0 APTT 26.8 D-Dimer, Quantitative 512 H Sodium 143 Potassium 4.2 Chloride 104 Carbon Dioxide 30 Anion Gap 13 BUN 14 Creatinine 0.8 Est GFR ( Amer) > 60 Est GFR (Non-Af Amer) > 60 POC Glucose (mg/dL) Random Glucose 84 Calcium 9.2 Phosphorus 3.6 Magnesium 2.2 Total Bilirubin 0.5 AST 115 H ALT 121 H D Alkaline Phosphatase 82 Troponin I 0.0150 Total Protein 7.8 Albumin 4.3 Globulin 3.5 Albumin/Globulin Ratio 1.2 Triglycerides Cholesterol LDL Cholesterol Direct HDL Cholesterol TSH 3rd Generation Blood Type Blood Type Confirm Antibody Screen BBK History Checked 11/28/17 11/28/17 11/29/17 20:09 20:29 02:55 WBC RBC Hgb Hct MCV MCH MCHC RDW Plt Count MPV Neut % (Auto) Lymph % (Auto) [place] % (Auto) Eos % (Auto) Baso % (Auto) Neut # Lymph # [place] # Eos # Baso # PT INR APTT D-Dimer, Quantitative Sodium Potassium Chloride Carbon Dioxide Anion Gap BUN Creatinine Est GFR ( Amer) Est GFR (Non-Af Amer) POC Glucose (mg/dL) Random Glucose Calcium Phosphorus Magnesium Total Bilirubin AST ALT Alkaline Phosphatase Troponin I < 0.0120 Total Protein Albumin Globulin Albumin/Globulin Ratio Triglycerides Cholesterol LDL Cholesterol Direct HDL Cholesterol TSH 3rd Generation Blood Type O POSITIVE Blood Type Confirm O POSITIVE Antibody Screen Negative BBK History Checked No verified bt 11/29/17 11/29/17 11/29/17 06:20 06:20 11:03 WBC 4.7 L RBC 3.82 Hgb 11.7 L Hct 35.5 MCV 92.8 MCH 30.7 MCHC 33.1 RDW 12.9 Plt Count 153 MPV 7.6 Neut % (Auto) 58.2 Lymph % (Auto) 25.8 [place] % (Auto) 13.1 H Eos % (Auto) 2.6 Baso % (Auto) 0.3 Neut # 2.7 Lymph # 1.2 [place] # 0.6 Eos # 0.1 Baso # 0.0 PT INR APTT D-Dimer, Quantitative Sodium 144 Potassium 3.7 Chloride 103 Carbon Dioxide 30 Anion Gap 15 BUN 12 Creatinine 0.8 Est GFR ( Amer) > 60 Est GFR (Non-Af Amer) > 60 POC Glucose (mg/dL) 138 H Random Glucose 83 Calcium 9.0 Phosphorus Magnesium Total Bilirubin 0.5 AST 75 H D ALT 97 H Alkaline Phosphatase 74 Troponin I Total Protein 7.2 Albumin 3.9 Globulin 3.3 Albumin/Globulin Ratio 1.2 Triglycerides 105 Cholesterol 174 LDL Cholesterol Direct 107 HDL Cholesterol 35 TSH 3rd Generation 10.90 H Blood Type Blood Type Confirm Antibody Screen BBK History Checked
[2017-11-29 15:38] VITALS: BP 106/67; PULSE 64; TEMP 97.9; O2SAT 99
--- NOTE | 2017-11-29 17:09 | CP.PCM.HP ---
Past Patient History - Past Medical History & Family History Past Medical History?: Yes - Past Social History Smoking Status: Never Smoked - CARDIAC Hx Cardiac Disorders: Yes Hx Heart Attack: Yes (2011) Hx Hypercholesterolemia: Yes Hx Hypertension: Yes - PULMONARY Hx Respiratory Disorders: No - NEUROLOGICAL Hx Neurological Disorder: No - HEENT Hx HEENT Problems: No - RENAL Hx Chronic Kidney Disease: Yes Hx Kidney Stones: Yes - ENDOCRINE/METABOLIC Hx Endocrine Disorders: Yes Hx Hypothyroidism: Yes - HEMATOLOGICAL/ONCOLOGICAL Hx Blood Disorders: No - INTEGUMENTARY Hx Dermatological Problems: No - MUSCULOSKELETAL/RHEUMATOLOGICAL Hx Musculoskeletal Disorders: Yes Hx Arthritis: Yes Hx Falls: No - GASTROINTESTINAL Hx Gastrointestinal Disorders: Yes Other/Comment: Hiatal Hernia - GENITOURINARY/GYNECOLOGICAL Hx Genitourinary Disorders: No - PSYCHIATRIC Hx Psychophysiologic Disorder: No Hx Substance Use: No - SURGICAL HISTORY Hx Surgeries: Yes Hx Cholecystectomy: Yes Hx Herniorrhaphy: Yes - ANESTHESIA Hx Anesthesia: Yes Hx Anesthesia Reactions: No Hx Malignant Hyperthermia: No Meds Allergies/Adverse Reactions: Allergies Allergy/AdvReac Type Severity Reaction Status Date / Time Dairy Allergy RASH Uncoded 11/28/17 18:46 Results - Vital Signs Recent Vital Signs: Last Vital Signs Temp 97.9 F 11/29/17 15:37 Pulse 64 11/29/17 15:37 Resp 18 11/29/17 15:37 BP 106/67 11/29/17 15:37 Pulse Ox 99 11/29/17 15:37 - Labs Result Diagrams: 11/29/17 06:20 11/29/17 06:20 Labs: Laboratory Results - last 24 hr 11/28/17 11/28/17 11/28/17 20:09 20:09 20:09 WBC 4.9 RBC 3.83 Hgb 11.9 L Hct 34.9 MCV 91.2 MCH 31.1 H MCHC 34.1 RDW 13.0 Plt Count 168 MPV 7.5 Neut % (Auto) 57.8 Lymph % (Auto) 26.2 [place] % (Auto) 13.6 H Eos % (Auto) 1.7 Baso % (Auto) 0.7 Neut # 2.8 Lymph # 1.3 [place] # 0.7 Eos # 0.1 Baso # 0.0 PT 11.4 INR 1.0 APTT 26.8 D-Dimer, Quantitative 512 H Sodium 143 Potassium 4.2 Chloride 104 Carbon Dioxide 30 Anion Gap 13 BUN 14 Creatinine 0.8 Est GFR ( Amer) > 60 Est GFR (Non-Af Amer) > 60 POC Glucose (mg/dL) Random Glucose 84 Calcium 9.2 Phosphorus 3.6 Magnesium 2.2 Total Bilirubin 0.5 AST 115 H ALT 121 H D Alkaline Phosphatase 82 Troponin I 0.0150 Total Protein 7.8 Albumin 4.3 Globulin 3.5 Albumin/Globulin Ratio 1.2 Triglycerides Cholesterol LDL Cholesterol Direct HDL Cholesterol TSH 3rd Generation Blood Type Blood Type Confirm Antibody Screen BBK History Checked 11/28/17 11/28/17 11/29/17 20:09 20:29 02:55 WBC RBC Hgb Hct MCV MCH MCHC RDW Plt Count MPV Neut % (Auto) Lymph % (Auto) [place] % (Auto) Eos % (Auto) Baso % (Auto) Neut # Lymph # [place] # Eos # Baso # PT INR APTT D-Dimer, Quantitative Sodium Potassium Chloride Carbon Dioxide Anion Gap BUN Creatinine Est GFR ( Amer) Est GFR (Non-Af Amer) POC Glucose (mg/dL) Random Glucose Calcium Phosphorus Magnesium Total Bilirubin AST ALT Alkaline Phosphatase Troponin I < 0.0120 Total Protein Albumin Globulin Albumin/Globulin Ratio Triglycerides Cholesterol LDL Cholesterol Direct HDL Cholesterol TSH 3rd Generation Blood Type O POSITIVE Blood Type Confirm O POSITIVE Antibody Screen Negative BBK History Checked No verified bt 11/29/17 11/29/17 11/29/17 06:20 06:20 11:03 WBC 4.7 L RBC 3.82 Hgb 11.7 L Hct 35.5 MCV 92.8 MCH 30.7 MCHC 33.1 RDW 12.9 Plt Count 153 MPV 7.6 Neut % (Auto) 58.2 Lymph % (Auto) 25.8 [place] % (Auto) 13.1 H Eos % (Auto) 2.6 Baso % (Auto) 0.3 Neut # 2.7 Lymph # 1.2 [place] # 0.6 Eos # 0.1 Baso # 0.0 PT INR APTT D-Dimer, Quantitative Sodium 144 Potassium 3.7 Chloride 103 Carbon Dioxide 30 Anion Gap 15 BUN 12 Creatinine 0.8 Est GFR ( Amer) > 60 Est GFR (Non-Af Amer) > 60 POC Glucose (mg/dL) 138 H Random Glucose 83 Calcium 9.0 Phosphorus Magnesium Total Bilirubin 0.5 AST 75 H D ALT 97 H Alkaline Phosphatase 74 Troponin I Total Protein 7.2 Albumin 3.9 Globulin 3.3 Albumin/Globulin Ratio 1.2 Triglycerides 105 Cholesterol 174 LDL Cholesterol Direct 107 HDL Cholesterol 35 TSH 3rd Generation 10.90 H Blood Type Blood Type Confirm Antibody Screen BBK History Checked 11/29/17 12:40 WBC RBC Hgb Hct MCV MCH MCHC RDW Plt Count MPV Neut % (Auto) Lymph % (Auto) [place] % (Auto) Eos % (Auto) Baso % (Auto) Neut # Lymph # [place] # Eos # Baso # PT INR APTT D-Dimer, Quantitative Sodium Potassium Chloride Carbon Dioxide Anion Gap BUN Creatinine Est GFR ( Amer) Est GFR (Non-Af Amer) POC Glucose (mg/dL) Random Glucose Calcium Phosphorus Magnesium Total Bilirubin AST ALT Alkaline Phosphatase Troponin I 0.0120 Total Protein Albumin Globulin Albumin/Globulin Ratio Triglycerides Cholesterol LDL Cholesterol Direct HDL Cholesterol TSH 3rd Generation Blood Type Blood Type Confirm Antibody Screen BBK History Checked
--- NOTE | 2017-11-29 17:44 | CARD ---
APPROVED REPORT EXAM: Two-dimensional and M-mode echocardiogram with Doppler and color Doppler. Other Information Quality : AverageRhythm : NSR INDICATION Chest Pain 2D DIMENSIONS IVSd1.26 (0.7-1.1cm)LVDd5.63 (3.9-5.9cm) PWd0.77 (0.7-1.1cm)IVSs1.27 (0.8-1.2cm) LVDs4.09 (2.5-4.0cm)FS (%) 27.2 % PWs1.24 (0.8-1.2cm) M-Mode DIMENSIONS Left Atrium (MM)3.62 (2.5-4.0cm)IVSd1.21 (0.7-1.1cm) Aortic Root3.06 (2.2-3.7cm)LVDd5.21 (4.0-5.6cm) Aortic Cusp Exc.1.76 (1.5-2.0cm)PWd0.91 (0.7-1.1cm) IVSs1.76 cmFS (%) 34 % LVDs3.44 (2.0-3.8cm)PWs1.15 cm Mitral Valve MV E Jlmhjrvn92.9cm/sMV DECEL [id number] A Zvxgkuhg11.0cm/s MV SCY61ivG/A ratio1.2MVA (PHT)3.12cm2 TDI Lateral E' Peak V7.25cm/sMedial E' Peak V6.27cm/sE/Lateral E'8.0 E/Medial E'9.2 Tricuspid Valve TR Peak Waqzmqno719gm/sRAP [id number] Peak Gr.17mmHg [id number] LEFT VENTRICLE The left ventricle is normal size. There is normal left ventricular wall thickness. The left ventricular function is normal. The left ventricular ejection fraction is 60% There is normal LV segmental wall motion. The left ventricular diastolic function is normal. No left ventricle thrombus noted on this study. There is no ventricular septal defect visualized. There is no left ventricular aneurysm. There is no mass noted in the left ventricle. RIGHT VENTRICLE The right ventricle is normal size. There is normal right ventricular wall thickness. The right ventricular systolic function is normal. ATRIA The left atrium size is normal. The right atrium size is normal. The interatrial septum is intact with no evidence for an atrial septal defect. AORTIC VALVE The aortic valve is normal in structure. No aortic regurgitation is present. There is no aortic valvular stenosis. There is no aortic valvular vegetation. MITRAL VALVE The mitral valve is normal in structure. There is no evidence of mitral valve prolapse. There is no mitral valve stenosis. Mitral regurgitation is mild. TRICUSPID VALVE The tricuspid valve is normal in structure. There is no tricuspid valve regurgitation noted. There is no tricuspid valve prolapse or vegetation. There is no tricuspid valve stenosis. PULMONIC VALVE The pulmonary valve is normal in structure. There is no pulmonic valvular regurgitation. There is no pulmonic valvular stenosis. GREAT VESSELS The aortic root is normal in size. The ascending aorta is normal in size. The IVC is normal in size and collapses >50% with inspiration. PERICARDIAL EFFUSION The pericardium appears normal. There is no pleural effusion. <Conclusion> Normal LV systolic function Mild Mitral Regurgitation
--- NOTE | 2017-11-29 18:12 | CARD ---
APPROVED REPORT EKG Measurement Heart [id number] <Conclusion> Normal sinus rhythm Cannot rule out Inferior infarct, age undetermined Abnormal ECG
[2017-11-29] MEDS ORDERED: SIMVASTATIN PO SCH (22:00)
[2017-11-29] MEDS ORDERED: Pravastatin Sodium 20 MG TAB PO SCH (22:00)
--- NOTE | 2017-11-29 23:56 | CP.PCM.DIS ---
Provider - Provider Date of Admission: 11/29/17 00:11 Attending physician: Grayson Fan MD Time Spent in preparation of Discharge (in minutes): 30 Hospital Course - Lab Results Lab Results: Most Recent Lab Values WBC 4.7 K/uL (4.8-10.8) L 11/29/17 06:20 RBC 3.82 Mil/uL (3.80-5.20) 11/29/17 06:20 Hgb 11.7 g/dL (12.0-16.0) L 11/29/17 06:20 Hct 35.5 % (34.0-47.0) 11/29/17 06:20 MCV 92.8 fl (81.0-99.0) 11/29/17 06:20 MCH 30.7 pg (27.0-31.0) 11/29/17 06:20 MCHC 33.1 g/dL (33.0-37.0) 11/29/17 06:20 RDW 12.9 % (11.5-14.5) 11/29/17 06:20 Plt Count 153 K/uL (130-400) 11/29/17 06:20 MPV 7.6 fl (7.2-11.7) 11/29/17 06:20 Neut % (Auto) 58.2 % (50.0-75.0) 11/29/17 06:20 Lymph % (Auto) 25.8 % (20.0-40.0) 11/29/17 06:20 Pacific % (Auto) 13.1 % (0.0-10.0) H 11/29/17 06:20 Eos % (Auto) 2.6 % (0.0-4.0) 11/29/17 06:20 Baso % (Auto) 0.3 % (0.0-2.0) 11/29/17 06:20 Neut # 2.7 K/uL (1.8-7.0) 11/29/17 06:20 Lymph # 1.2 K/uL (1.0-4.3) 11/29/17 06:20 Pacific # 0.6 K/uL (0.0-0.8) 11/29/17 06:20 Eos # 0.1 K/uL (0.0-0.7) 11/29/17 06:20 Baso # 0.0 K/uL (0.0-0.2) 11/29/17 06:20 PT 11.4 Seconds (9.8-13.1) 11/28/17 20:09 INR 1.0 (0.9-1.2) 11/28/17 20:09 APTT 26.8 Seconds (25.6-37.1) 11/28/17 20:09 D-Dimer, Quantitative 512 ng/mlDDU (0-230) H 11/28/17 20:09 Sodium 144 mmol/l (132-148) 11/29/17 06:20 Potassium 3.7 MMOL/L (3.6-5.0) 11/29/17 06:20 Chloride 103 mmol/L (98-107) 11/29/17 06:20 Carbon Dioxide 30 mmol/L (22-30) 11/29/17 06:20 Anion Gap 15 (10-20) 11/29/17 06:20 BUN 12 mg/dl (7-17) 11/29/17 06:20 Creatinine 0.8 mg/dl (0.7-1.2) 11/29/17 06:20 Est GFR ( Amer) > 60 11/29/17 06:20 Est GFR (Non-Af Amer) > 60 11/29/17 06:20 POC Glucose (mg/dL) 138 mg/dL (65-110) H 11/29/17 11:03 Random Glucose 83 mg/dL (65-105) 11/29/17 06:20 Calcium 9.0 mg/dL (8.4-10.2) 11/29/17 06:20 Phosphorus 3.6 mg/dl (2.5-4.5) 11/28/17 20:09 Magnesium 2.2 MG/DL (1.6-2.3) 11/28/17 20:09 Total Bilirubin 0.5 mg/dl (0.2-1.3) 11/29/17 06:20 AST 75 U/L (14-36) H D 11/29/17 06:20 ALT 97 U/L (9-52) H 11/29/17 06:20 Alkaline Phosphatase 74 U/L (38-126) 11/29/17 06:20 Troponin I 0.0120 ng/mL (0.00-0.120) 11/29/17 12:40 Total Protein 7.2 G/DL (6.3-8.2) 11/29/17 06:20 Albumin 3.9 g/dL (3.5-5.0) 11/29/17 06:20 Globulin 3.3 gm/dL (2.2-3.9) 11/29/17 06:20 Albumin/Globulin Ratio 1.2 (1.0-2.1) 11/29/17 06:20 Triglycerides 105 mg/DL (0-149) 11/29/17 06:20 Cholesterol 174 mg/dL (0-199) 11/29/17 06:20 LDL Cholesterol Direct 107 mg/dL (0-129) 11/29/17 06:20 HDL Cholesterol 35 MG/DL (30-70) 11/29/17 06:20 TSH 3rd Generation 10.90 mIU/ML (0.46-4.68) H 11/29/17 06:20 Blood Type O POSITIVE 11/28/17 20:09 Blood Type Confirm O POSITIVE 11/28/17 20:29 Antibody Screen Negative 11/28/17 20:09 BBK History Checked No verified bt 11/28/17 20:09 Discharge Plan - Discharge Medications Prescriptions: Pantoprazole Sodium [Protonix] 40 mg PO DAILY #30 ect - Follow Up Plan Condition: STABLE Disposition: HOME/ ROUTINE
[2017-11-30] MEDS ORDERED: Levothyroxine 125 MCG TAB PO SCH (06:30)
== END 2017-11-29 19:15 | disposition home or self-care (01) ==
LOC: H.ER 18:38 → H.ERHOLD 11-29 00:11 → H.TEL 11-29 05:20
PROVIDERS: ADMIT Internal Medicine; ATTEND Internal Medicine
DX: R07.89 Other chest pain (principal); E78.00 Pure hypercholesterolemia, unspecified; E78.5 Hyperlipidemia, unspecified; I10 Essential (primary) hypertension; I25.2 Old myocardial infarction; K29.70 Gastritis, unspecified, without bleeding; K44.9 Diaphragmatic hernia without obstruction or gangrene; M54.30 Sciatica, unspecified side; N18.9 Chronic kidney disease, unspecified; Z79.82 Long term (current) use of aspirin; Z80.1 Family history of malignant neoplasm of trachea, bronchus and lung; Z87.442 Personal history of urinary calculi; Z90.49 Acquired absence of other specified parts of digestive tract; E66.3 Overweight; M19.90 Unspecified osteoarthritis, unspecified site; E03.9 Hypothyroidism, unspecified; E05.90 Thyrotoxicosis, unspecified without thyrotoxic crisis or storm; Z23 Encounter for immunization
CPT/HCPCS: 71046; 71275; 72040; 72100; 73502; 80053; 80061; 82948; 83735; 84100; 84443; 84484; 85025; 85378; 85610; 85730; 86850; 86900; 90732; 93005; 93306; 99285; G0009; G0378; J1650; Q9967

== ENCOUNTER 2018-06-05 12:52 | Emergency (ER) | payer MEDICARE, MEDICAID ==
[2018-06-05 13:03] VITALS: O2SAT 98
[2018-06-05] MEDS ORDERED: Sodium Chloride 0.9% 1,000 ML IV STA (13:18)
[2018-06-05 14:21] LABS: BASO % 0.2 % (0.0-2.0); EOS # 0.1 K/uL (0.0-0.7); EOS % 1.4 % (0.0-4.0); HEMOGLOBIN 12.2 g/dL (12.0-16.0); LYMPH # 1.2 K/uL (1.0-4.3); LYMPH % 19.4 % (20.0-40.0); MEAN CELL VOLUME 94.1 fl (81.0-99.0); MEAN CORPUSCULAR HEMOGLOBIN 31.5 pg (27.0-31.0); MEAN CORPUSCULAR HGB CONC 33.5 g/dL (33.0-37.0); MEAN PLATELET VOLUME 7.6 fl (7.2-11.7); MONO # 0.5 K/uL (0.0-0.8); MONO % 7.7 % (0.0-10.0); NEUT # 4.4 K/uL (1.8-7.0); NEUT % 71.3 % (50.0-75.0); NRBC % 0.1 % (0.0-0.0); RBC 3.85 Mil/uL (3.80-5.20); RED CELL DISTRIBUTION WIDTH 13.3 % (11.5-14.5); WHITE BLOOD COUNT 6.2 K/uL (4.8-10.8)
--- NOTE | 2018-06-05 14:26 | ED PDOC ---
HPI: CCC, URI, Sore Throat Time Seen by Provider: 06/05/18 13:05 Chief Complaint (Nursing): ENT Problem Chief Complaint (Provider): ENT Problem History Per: Patient History/Exam Limitations: no limitations Onset/Duration Of Symptoms: Days (x3) Current Symptoms Are (Timing): Still Present Additional Complaint(s): 62 year old female presents to ED with right earache ongoing for 3 days. She additionally reports experiencing nausea and upper right abdominal pain while en route to the hospital. Patient denies any hearing changes, fever, chills, cough, congestion, hemoptysis, vomiting, diarrhea, constipation, melena, hematochezia, chest pain, shortness of breath, back pain, flank pain or radiation of abdominal pain. Gastro: Dr. Isidro Delcid PMD: none provided Past Medical History Reviewed: Historical Data, Nursing Documentation, Vital Signs Vital Signs: Last Vital Signs Temp 98.5 F 06/05/18 16:45 Pulse 87 06/05/18 16:45 Resp 16 06/05/18 16:45 BP 138/82 06/05/18 16:45 Pulse Ox 98 06/05/18 16:45 - Medical History PMH: Arthritis, Hiatal Hernia, HTN, Hypercholesterolemia, Hyperthyroidism, Hypothyroidism, Kidney Stones, Chronic Kidney Disease - Surgical History Surgical History: Cholecystectomy, Hernia Repair - Family History Family History: States: Unknown Family Hx, Diabetes (Brothers) - Social History Current smoker - smoking cessation education provided: No Alcohol: None Drugs: Denies - Home Medications Home Medications: Ambulatory Orders Medication Instructions Recorded Aspirin [Aspirin Chewable] 1 tab PO DAILY 04/25/17 Simvastatin 1 tab PO HS 04/25/17 amLODIPine [Norvasc] 1 tab PO DAILY 04/25/17 hydroCHLOROthiazide [Hydrodiuril] 1 tab PO DAILY 04/25/17 Mometasone 0.1% [Elocon Cream] 15 gm TP BID 11/28/17 Levothyroxine [Synthroid] 125 mcg PO DAILY@0630 tab 11/29/17 Pantoprazole Sodium [Protonix] 40 mg PO DAILY #30 ect 11/29/17 Famotidine [Pepcid] 20 mg PO DAILY PRN #10 tab 06/05/18 Neomycin/Polymyxin/Hydrocortis 3 drop AD TID #1 bottle 06/05/18 [Cortisporin Otic Susp] Nitrofurantoin Macrocrystals 100 mg PO BID #14 cap 06/05/18 [Macrobid] Ondansetron ODT [Zofran ODT] 4 mg PO TID #10 odt 06/05/18 - Allergies Allergies/Adverse Reactions: Allergies Allergy/AdvReac Type Severity Reaction Status Date / Time Dairy Allergy RASH Uncoded 06/05/18 13:03 Review of Systems ROS Statement: Except As Marked, All Systems Reviewed And Found Negative Constitutional: Negative for: Fever (contrary to triage note), Chills ENT: Positive for: Ear Pain (right-sided). Negative for: Nose Congestion, Other (hearing changes) Cardiovascular: Negative for: Chest Pain Respiratory: Negative for: Cough, Shortness of Breath, Hemoptysis Gastrointestinal: Positive for: Nausea, Abdominal Pain (upper right). Negative for: Vomiting, Diarrhea, Constipation, Melena, Hematochezia Musculoskeletal: Negative for: Back Pain (or flank pain) Physical Exam - Reviewed Nursing Documentation Reviewed: Yes Vital Signs Reviewed: Yes - Physical Exam Appears: Positive for: No Acute Distress Eye Exam: Positive for: Normal appearance, EOMI, PERRL. Negative for: Scleral icterus ENT: Positive for: Pharynx Is (clear), TM Is/Are (nonbulging or nonerythematous bilaterally), Other (left canal is within normal limtis. right canal is edematous and erythematous with pain on tragal pulling (-) mastoid tenderness bilaterally). Negative for: Pharyngeal Erythema, Tonsillar Exudate, Tonsillar Swelling Gastrointestinal/Abdominal: Positive for: Soft, Tenderness (RUQ). Negative for : Distended, Guarding Back: Positive for: Normal Inspection. Negative for: L CVA Tenderness, R CVA Tenderness - Laboratory Results Result Diagrams: 06/05/18 14:00 06/05/18 14:00 - ECG O2 Sat by Pulse Oximetry: 98 (RA) Pulse Ox Interpretation: Normal Medical Decision Making Medical Decision Making: Initial Impression: Otitis externa Initial Plan: * EKG * CMP * Lipase * CBC * Xray obstructive series * NS 1,000ml IV per 1,000mls/hr * Pepcid 40mg IVP * Zofran 4mg IVP * UA * US ABD Time: 1446 --US ABD FINDINGS: LIVER: Measures 15.6 cm. Hepatopedal blood flow. Fatty infiltration manifest ultrasonographically as increased echogenicity of the liver parenchyma. No mass. No intrahepatic bile duct dilatation. GALLBLADDER: Status post cholecystectomy. No abnormality is seen in the gallbladder fossa. COMMON BILE DUCT: Measures 12.4 mm. Dilated common bile duct without intrahepatic bile duct dilatation. Findings most likely related to prior cholecystectomy. PANCREAS: Obscured by overlying bowel gas. Non diagnostic assessment of the pancreas RIGHT KIDNEY: Measures 4.5 x 10.4cm. Normal echogenicity. No calculus, mass, or hydronephrosis. LEFT KIDNEY: Measures 4.6 x 10.4cm. Normal echogenicity. No calculus, mass, or hydronephrosis. SPLEEN: Normal in size and contour. No mass. AORTA: No aneurysmal dilatation. IVC: Unremarkable. OTHER FINDINGS: None. IMPRESSION: No acute findings related to/accounting for the clinical presentation. Additional benign and/or incidental findings described above. Limitations of the current examination: Nondiagnostic assessment of the pancreas. Time: 1448 --Xray obstructive series FINDINGS: CHEST: Lungs: Clear. Cardiovascular: No radiographic findings to suggest acute or significant cardiovascular disease. Pleura: No pleural fluid. No pneumothorax. Other findings: None. ABDOMEN AND PELVIS: Bowel: Constipation without fecal impaction or obstruction. Free air: None. Bones: Unremarkable. Other findings: None. IMPRESSION: No acute findings related to/accounting for the clinical presentation. Time: 1500 --Labs: no significant clinical abnormality. --Urine: negative for active infection or . On re-evaluation, pt. reports complete relief of nausea and abd pain. Scribe Attestation: Documented by Elizabeth Christian, acting as a scribe for James Rae PA-C. Provider Scribe Attestation: All medical record entries made by the Scribe were at my direction and personally dictated by me. I have reviewed the chart and agree that the record accurately reflects my personal performance of the history, physical exam, medical decision making, and the department course for this patient. I have also personally directed, reviewed, and agree with the discharge instructions and disposition. Disposition - Clinical Impression Clinical Impression: Otitis externa, Gastritis - Patient ED Disposition Is Patient to be Admitted: No - Disposition Referrals: [facility] [Outside] Disposition: Routine/Home Disposition Time: 15:00 Condition: IMPROVED Additional Instructions: EVONNE RODRIGUEZ, thank you for letting us take care of you today. Your provider was Mickie Torres MD and you were treated for EARACHE,FEVER. The emergency medical care you received today was directed at your acute symptoms. If you were prescribed any medication, please fill it and take as directed. It may take several days for your symptoms to resolve. Return to the Emergency Department if your symptoms worsen, do not improve, or if you have any other problems. Please contact your doctor or call one of the physicians/clinics you have been referred to that are listed on the Patient Visit Information form that is included in your discharge packet. Bring any paperwork you were given at discharge with you along with any medications you are taking to your follow up visit. Our treatment cannot replace ongoing medical care by a primary care provider outside of the emergency department. Thank you for allowing the [facility] team to be part of your care today. If you had an X-Ray or CT scan: A Radiologist will review the ED reading if any change in treatment is needed we will contact you. If you had a blood, urine, or wound culture: It will take several days for the results, if any change in treatment is needed we will contact you. If you had an STI test: It will take 48 hours for the results. Please call after 1 week if you have not heard back. Prescriptions: Famotidine [Pepcid] 20 mg PO DAILY PRN #10 tab PRN Reason: Dyspepsia Neomycin/Polymyxin/Hydrocortis [Cortisporin Otic Susp] 3 drop AD TID #1 bottle Nitrofurantoin Macrocrystals [Macrobid] 100 mg PO BID #14 cap Ondansetron ODT [Zofran ODT] 4 mg PO TID #10 odt Instructions: Gastritis (DC), Outer Ear Infection (DC) Forms: [employer] ([employer])
[2018-06-05 14:31] LABS: ALB/GLOB RATIO 1.3 (1.0-2.1); ALBUMIN 4.3 g/dL (3.5-5.0); ALT/SGPT 27 U/L (9-52); AST/SGOT 32 U/L (14-36); BLOOD UREA NITROGEN 13 mg/dl (7-17); CALCIUM 8.8 mg/dL (8.4-10.2); GFR AFRICAN-AMERICAN > 60; GFR NON-AFRICAN AMERICAN > 60; LIPASE 173 U/L (23-300)
--- NOTE | 2018-06-05 14:48 | US ---
Date of service: 06/05/2018 HISTORY: RUQ pain COMPARISON: None. TECHNIQUE: Sonographic evaluation of the abdomen. FINDINGS: LIVER: Measures 15.6 cm. Hepatopedal blood flow. Fatty infiltration manifest ultrasonographically as increased echogenicity of the liver parenchyma. No mass. No intrahepatic bile duct dilatation. GALLBLADDER: Status post cholecystectomy. No abnormality is seen in the gallbladder fossa. COMMON BILE DUCT: Measures 12.4 mm. Dilated common bile duct without intrahepatic bile duct dilatation. Findings most likely related to prior cholecystectomy. PANCREAS: Obscured by overlying bowel gas. Non diagnostic assessment of the pancreas RIGHT KIDNEY: Measures 4.5 x 10.4cm. Normal echogenicity. No calculus, mass, or hydronephrosis. LEFT KIDNEY: Measures 4.6 x 10.4cm. Normal echogenicity. No calculus, mass, or hydronephrosis. SPLEEN: Normal in size and contour. No mass. AORTA: No aneurysmal dilatation. IVC: Unremarkable. OTHER FINDINGS: None. IMPRESSION: No acute findings related to/accounting for the clinical presentation. Additional benign and/or incidental findings described above. Limitations of the current examination: Nondiagnostic assessment of the pancreas.
--- NOTE | 2018-06-05 14:49 | RAD ---
Date of service: 06/05/2018 PROCEDURE: Radiographs of the chest and abdomen (obstructive series) HISTORY: Abdominal pain. COMPARISON: No prior. TECHNIQUE: AP radiograph of the chest, with upright and supine radiographs of the abdomen. FINDINGS: CHEST: Lungs: Clear. Cardiovascular: No radiographic findings to suggest acute or significant cardiovascular disease. Pleura: No pleural fluid. No pneumothorax. Other findings: None. ABDOMEN AND PELVIS: Bowel: Constipation without fecal impaction or obstruction. Free air: None. Bones: Unremarkable. Other findings: None. IMPRESSION: No acute findings related to/accounting for the clinical presentation.
[2018-06-05 15:31] LABS: SQUAMOUS EPITHIAL 1 /hpf (0-5); URINE BILIRUBIN NEGATIVE (NEGATIVE); URINE BLOOD NEGATIVE (NEGATIVE); URINE CLARITY CLEAR (Clear); URINE COLOR YELLOW (YELLOW); URINE GLUCOSE (UA) NEG (Normal); URINE LEUKOCYTE ESTERASE TRACE Leu/uL (Negative); URINE PROTEIN NEGATIVE (NEGATIVE); URINE UROBILINOGEN 0.2-1.0 mg/dL (0.2-1.0)
[2018-06-05 16:46] VITALS: BP 138/82; PULSE 87; RESP 16; TEMP 98.5
--- NOTE | 2018-06-05 19:00 | CARD ---
APPROVED REPORT Date of service: 06/05/2018 <Conclusion> Sinus bradycardia Inferior infarct, age undetermined Abnormal ECG
== END 2018-06-05 16:46 | disposition home or self-care (01) ==
LOC: H.ER 12:52
DX: H60.91 Unspecified otitis externa, right ear (principal); K29.70 Gastritis, unspecified, without bleeding; E03.9 Hypothyroidism, unspecified; E05.90 Thyrotoxicosis, unspecified without thyrotoxic crisis or storm; E78.00 Pure hypercholesterolemia, unspecified; I12.9 Hypertensive chronic kidney disease with stage 1 through stage 4 chronic kidney disease, or unspecified chronic kidney disease
CPT/HCPCS: 74022; 76700; 80053; 81003; 81025; 83690; 85025; 93005; 96374; 96375; 99283; J2405; J7030